=== PATIENT | female | born 1990 | race Caucasian/White ===

== ENCOUNTER 2016-08-30 10:32 | Emergency (ER) | payer BC ==
[~2016-08-30] VITALS: Ht 154.9 cm; Wt 50.0 kg
[~2016-08-30 10:32] MED LIST: ASPEC325 PO; CBCI IV; ETONMIS VAGRING; INSPMPNVLG PF
[2016-08-30 10:37] VITALS: Ht 154.9 cm; Wt 50.0 kg
[2016-08-30] MEDS ORDERED: IUD'IUD (10:53)
[2016-08-30] MEDS ORDERED: ATV/1 PO (10:53)
[2016-08-30] MEDS ORDERED: KETOROLAC TROMETHAMINE 30 MG/ML VIAL IV STA (11:14)
--- NOTE | 2016-08-30 11:28 | DIAGNOSTIC IMAGING REPORT ---
CHEST ONE VIEW PORTABLE CLINICAL HISTORY: Chest Pain dyspnea COMPARISON STUDY: No previous studies for comparison. FINDINGS: The bones soft tissues and hemidiaphragms are normal. The cardiomediastinal silhouette is normal. The lungs are clear. The pulmonary vasculature is normal. IMPRESSION: Negative chest. Electronically signed by: Pako Pittman M.D. 08/30/2016 11:26 AM Dictated Date/Time: 08/30/2016 11:26 AM
[2016-08-30 11:44] LABS: BASO % 0.5 %; BASO ABS # 0.04 K/uL (0-0.2); COMPLETE YES; EOS % 1.1 %; HEMATOCRIT 45.2 % (37-47); IG% 0.1 %; LYMPH % 22.4 %; MEAN CELL VOLUME 90.9 fL (80-100); MEAN CORPUSCULAR HGB CONC 34.1 g/dl (32-36); MEAN PLATELET VOLUME 10.1 fL (7.4-10.4); MONO % 5.1 %; NEUT % 70.8 %; PLATELET COUNT 245 K/uL (130-400); RED BLOOD COUNT 4.97 M/uL (4.2-5.4); WHITE BLOOD COUNT 8.04 K/uL (4.8-10.8)
[2016-08-30 12:03] LABS: BLOOD UREA NITROGEN 10 mg/dl (7-18); CREATININE 0.56 mg/dl (0.60-1.20); GLUCOSE 69 mg/dl (70-99)
[2016-08-30 12:04] LABS: BUN/CREATININE RATIO 18.2 (10-20); CARBON DIOXIDE 27 mmol/L (21-32); CHLORIDE 107 mmol/L (98-107); POTASSIUM 3.9 mmol/L (3.5-5.1); SODIUM 140 mmol/L (136-145)
[2016-08-30 12:06] LABS: CALCIUM 8.7 mg/dl (8.5-10.1)
[2016-08-30 12:08] LABS: CKMB/CK RATIO 1.5 (0-3.0)
[2016-08-30 14:30] VITALS: BP 108/78; TEMP 36.5; O2SAT 98
[2016-08-30 14:32] VITALS: PULSE 77
--- NOTE | 2016-08-30 17:06 | EMERGENCY ROOM VISIT NOTE ---
History Report prepared by Darron: Brandy Lopez Under the Supervision of: Dr. Carlos Rey D.O. First contact with patient: 10:51 Chief Complaint: CARDIAC ASSESSMENT Stated Complaint: CHEST PAIN Nursing Triage Summary: pt here with right sided chest pain, sob since 0830 this am. pt states increased with walking. History of Present Illness The patient is a 26 year old female who presents to the Emergency Room with complaints of an episode of right sided chest pain that began at 8:20 am this morning. She describes the pain as sharp in sensation. She notes the pain radiated into her right shoulder. She also experiencing shortness of breath and lightheadedness during the episode. The patient received Nitro en route to the ED and notes that this helped alleviate her pain. She notes that she does have anxiety and has experienced chest tightness before from her anxiety. She denies this feeling similar to her anxiety. The patient is a diabetic and has an insulin pump. She notes that she has not eaten yet today. She did check her sugars before EMS arrived and she reports a blood sugar level of 95. The patient notes swelling to her lower extremities last week. She has an IUD. Pt denies headache, change in vision, fevers, nausea, vomiting, diarrhea, pain with urination, pain to arm or jaw, recent trips and melena. Source of History: patient Onset: 8:20am this morning Position: chest (right) Quality: sharp Timing: other (episode) Associated Symptoms: + SOB, No abdominal pain, No fevers, No nausea, No vomiting Note: The patient experienced lightheadedness and shoulder pain. Review of Systems See HPI for pertinent positives & negatives. A total of 10 systems reviewed and were otherwise negative. Past Medical & Surgical Medical Problems: (1) Diabetes (2) Diabetic neuropathy (3) Fibromyalgia (4) Juvenile rheumatoid arthritis (5) Tibia/fibula fracture Social History Problems: (1) Bronchitis Family History Diabetes mellitus FH: CAD (coronary artery disease) GRANDMOTHER FH: multiple sclerosis MOTHER AUNT AUNT Social History Smoking Status: Current Every Day Smoker Alcohol Use: occasionally Marital Status: in relationship Occupation Status: employed Current/Historical Medications Scheduled Insulin Aspart (novoLOG INSULIN PUMP ), PF DAILY Scheduled PRN Lorazepam (Ativan), 1 MG PO Q6H PRN for Anxiety Miscellaneous Medications Iud's (Paragard Intrauterine Patient Care Director) Allergies Coded Allergies: Vancomycin (Verified Allergy, Mild, 0, 08/30/16) pruritus Cefaclor (Verified Allergy, Unknown, UNKNOWN, 08/30/16) Penicillins (Verified Allergy, Unknown, UNKNOWN, 08/30/16) Physical Exam Vital Signs Date Time Temp Pulse Resp B/P Pulse Ox O2 Delivery O2 Flow Rate FiO2 08/30/16 14:32 77 13 08/30/16 14:30 36.5 77 20 108/78 98 08/30/16 14:27 85 22 98 08/30/16 14:22 69 18 97 08/30/16 14:17 66 23 98 08/30/16 14:12 69 17 97 08/30/16 14:07 71 17 97 08/30/16 14:02 78 19 95 08/30/16 14:01 105/59 08/30/16 13:57 72 14 97 08/30/16 13:52 67 14 98 08/30/16 13:47 93 22 96 08/30/16 13:42 69 21 98 08/30/16 13:37 69 14 97 08/30/16 13:32 68 13 98 08/30/16 13:31 109/64 08/30/16 13:27 74 15 97 08/30/16 13:22 69 20 99 08/30/16 13:17 76 15 97 08/30/16 13:12 70 19 97 08/30/16 13:10 77 08/30/16 13:07 71 21 98 08/30/16 13:02 71 15 97 08/30/16 13:01 107/71 08/30/16 12:57 67 12 98 08/30/16 12:52 68 19 98 08/30/16 12:47 66 19 98 08/30/16 12:43 108/78 08/30/16 12:43 63 20 108/78 98 Room Air 08/30/16 12:42 78 26 99 08/30/16 12:37 70 20 98 08/30/16 12:32 79 19 98 08/30/16 12:27 81 25 99 08/30/16 12:22 76 23 98 08/30/16 12:17 87 19 99 08/30/16 12:12 69 14 98 08/30/16 12:07 70 21 98 08/30/16 12:02 75 33 98 08/30/16 11:57 71 0 98 08/30/16 11:52 72 23 98 08/30/16 11:47 75 20 98 08/30/16 11:42 73 5 99 08/30/16 11:37 73 22 97 08/30/16 11:32 80 12 99 08/30/16 11:27 78 19 96 08/30/16 11:22 72 18 98 08/30/16 11:17 71 23 98 08/30/16 11:12 70 14 97 08/30/16 11:07 83 22 98 08/30/16 11:02 71 19 99 08/30/16 10:57 70 13 96 08/30/16 10:52 86 20 99 08/30/16 10:47 74 12 99 08/30/16 10:44 78 08/30/16 10:41 126/61 08/30/16 10:37 36.5 72 16 126/61 99 Room Air Physical Exam GENERAL: alert, sitting up in bed, well appearing, well nourished, no distress, non-toxic EYE EXAM: normal conjunctiva OROPHARYNX: no exudate, no erythema, lips, buccal mucosa, and tongue normal and mucous membranes are moist NECK: supple, no nuchal rigidity, no adenopathy, non-tender LUNGS: Clear to auscultation. Normal chest wall mechanics HEART: no murmurs, S1 normal and S2 normal ABDOMEN: abdomen soft, non-tender, normo-active bowel sounds, no masses, no rebound or guarding. BACK: Back is symmetrical on inspection and there is no deformity, no midline tenderness, no CVA tenderness. SKIN: no rashes and no bruising, multiple tattoos. UPPER EXTREMITIES: upper extremities are grossly normal. Radial pulses equal bilaterally. LOWER EXTREMITIES: No pitting edema. Calves equal bilaterally. NEURO EXAM: Normal sensorium, cranial nerves II-XII grossly intact, normal speech, no gross weakness of arms, no gross weakness of legs. Medical Decision & Procedures ER Provider Diagnostic Interpretation: XRAY:[id number]: A Chest One view study was reviewed, no fracture was seen. CHEST ONE VIEW PORTABLE CLINICAL HISTORY: Chest Pain dyspnea COMPARISON STUDY: No previous studies for comparison. FINDINGS: The bones soft tissues and hemidiaphragms are normal. The cardiomediastinal silhouette is normal. The lungs are clear. The pulmonary vasculature is normal. IMPRESSION: Negative chest. Electronically signed by: Pako Pittman M.D. 08/30/2016 11:26 AM Dictated Date/Time: 08/30/2016 11:26 AM Laboratory Results 08/30/16 11:31 Red Blood Count 4.97, Mean Corpuscular Volume 90.9, Mean Corpuscular Hemoglobin 31.0, Mean Corpuscular Hemoglobin Concent 34.1, Mean Platelet Volume 10.1, Neutrophils (%) (Auto) 70.8, Lymphocytes (%) (Auto) 22.4, Monocytes (%) (Auto) 5.1, Eosinophils (%) (Auto) 1.1, Basophils (%) (Auto) 0.5, Neutrophils # (Auto) 5.69, Lymphocytes # (Auto) 1.80, Monocytes # (Auto) 0.41, Eosinophils # (Auto) 0.09, Basophils # (Auto) 0.04 08/30/16 11:31 Test 08/30/16 11:31 08/30/16 13:30 White Blood Count 8.04 K/uL (4.8-10.8) Red Blood Count 4.97 M/uL (4.2-5.4) Hemoglobin 15.4 g/dL (12.0-16.0) Hematocrit 45.2 % (37-47) Mean Corpuscular Volume 90.9 fL (80-100) Mean Corpuscular Hemoglobin 31.0 pg (25-34) Mean Corpuscular Hemoglobin Concent 34.1 g/dl (32-36) Platelet Count 245 K/uL (130-400) Mean Platelet Volume 10.1 fL (7.4-10.4) Neutrophils (%) (Auto) 70.8 % Lymphocytes (%) (Auto) 22.4 % Monocytes (%) (Auto) 5.1 % Eosinophils (%) (Auto) 1.1 % Basophils (%) (Auto) 0.5 % Neutrophils # (Auto) 5.69 K/uL (1.4-6.5) Lymphocytes # (Auto) 1.80 K/uL (1.2-3.4) Monocytes # (Auto) 0.41 K/uL (0.11-0.59) Eosinophils # (Auto) 0.09 K/uL (0-0.5) Basophils # (Auto) 0.04 K/uL (0-0.2) RDW Standard Deviation 43.6 fL (36.4-46.3) RDW Coefficient of Variation 13.1 % (11.5-14.5) Immature Granulocyte % (Auto) 0.1 % Immature Granulocyte # (Auto) 0.01 K/uL (0.00-0.02) D-Dimer < 190 ug/L FEU (0-500) Anion Gap 6.0 mmol/L (3-11) Est Creatinine Clear Calc Drug Dose 112.8 ml/min Estimated GFR () 147.1 Estimated GFR (Non- 126.9 BUN/Creatinine Ratio 18.2 (10-20) Calcium Level 8.7 mg/dl (8.5-10.1) Total Creatine Kinase 67 U/L (26-192) Creatine Kinase MB 1.0 ng/ml (0.5-3.6) Creatine Kinase MB Ratio 1.5 (0-3.0) Troponin I < 0.015 ng/ml (0-0.045) Laboratory results per my review. Medications Administered Medications (Trade) Dose Ordered Sig/Heike Route Start Time Stop Time Status Last Admin Dose Admin Ketorolac Tromethamine (Toradol Inj) 30 mg NOW STAT IV 08/30/16 11:14 08/30/16 11:15 DC 08/30/16 12:42 30 MG ECG Indication: chest pain Rate (beats per minute): 68 Rhythm: normal sinus Findings: no ectopy, other (normal axis) Comparison ECG Date: no prior available ED Course ED COURSE: Vital signs were reviewed and showed normal vitals. The patients medical record was reviewed The above diagnostic studies were performed and reviewed. ED treatments and interventions as stated above. 1059: The patient was evaluated in room C7. A complete history and physical examination was performed. 1114: Toradol Inj 30 mg IV. 1306: The patient's pain has resolved. I updated her on her results. 1428: Upon reevaluation, the patient is hemodynamically stable.I discussed my findings with the patient and she understands and agrees with the treatment plan. Based on the patients age, coexisting illnesses, exam and lab findings the decision to treat as an outpatient was made. The patient remained stable while under my care. The patient appeared well at the time of discharge. Medical Decision Differential diagnoses includes but is not limited to acute coronary syndrome, myocardial infarction, pericarditis, pulmonary embolus, aortic dissection, pneumonia, pneumothorax, musculoskeletal, shingles, esophageal. The patient is a 26 year old female who presents to the ED with complaints of chest pain. Labs so no significant leukocytosis or anemia. BMP is unremarkable. Troponins were negative 2. D-dimer was negative. EKG was unremarkable. Chest x-ray was normal. Her pain completely abated while in the ER. Based on her symptoms I do believe that this is likely either muscle skeletal or anxiety related. She does have risk factors which include diabetes and is a smoker but with her 2 negative troponins and negative d-dimer she was felt to be extremely low risk. Heart score was low. Patient was updated at bedside and discharged at her baseline to follow-up with her primary care doctor. Discussed with Pt concerning signs and symptoms to watch out for. Pt was instructed to follow up with their PCP and discussed with the patient their option to return to the ED at anytime for persistent or worsening symptoms. The appropriate anticipatory guidance and out-patient management, including indications for return to the emergency department, were explained at length to the patient and understood. Impression Primary Impression: Chest pain Scribe Attestation The scribe's documentation has been prepared under my direction and personally reviewed by me in its entirety. I confirm that the note above accurately reflects all work, treatment, procedures, and medical decision making performed by me. Departure Information Dispostion Home / Self-Care Referrals Dorothy Velásquez DO (PCP) Forms IMPORTANT VISIT INFORMATION Patient Instructions Chest Pain - [facility], [facility] Additional Instructions Please follow up with your primary care doctor with in the next 24 hours. Any worsening of your symptoms, please return to the ED immediately. Includes recurrence or worsening chest pain, shortness breath, passing out, weakness or numbness in arms or legs or any other concerning signs or symptoms from your standpoint. Problem Qualifiers Primary Impression: Chest pain Chest pain type: unspecified Qualified Codes: R07.9 - Chest pain, unspecified
== END 2016-08-30 15:15 | disposition home or self-care (01) ==
LOC: EDBD 10:32 → C.EDC 10:33
DX: R07.9 Chest pain, unspecified (principal); M25.511 Pain in right shoulder; F41.9 Anxiety disorder, unspecified; R06.02 Shortness of breath; R42 Dizziness and giddiness; M79.7 Fibromyalgia; E11.9 Type 2 diabetes mellitus without complications; Z96.41 Presence of insulin pump (external) (internal); Z97.5 Presence of (intrauterine) contraceptive device; Z82.0 Family history of epilepsy and other diseases of the nervous system; Z82.49 Family history of ischemic heart disease and other diseases of the circulatory system; Z83.3 Family history of diabetes mellitus; F17.200 Nicotine dependence, unspecified, uncomplicated

== ENCOUNTER 2017-01-19 04:40 | Emergency (ER) | payer BC ==
[~2017-01-19] VITALS: Ht 154.9 cm; Wt 48.6 kg
[~2017-01-19 04:40] MED LIST changes: -ASPEC325 PO; +ATV/1 PO; -CBCI IV; -ETONMIS VAGRING; +IUD'IUD
[2017-01-19 04:45] VITALS: BP 122/81; PULSE 87; TEMP 37; O2SAT 97; Ht 154.9 cm; Wt 48.6 kg
[2017-01-19] MEDS ORDERED: OXYCODONE IR HOME PACK PO ONE (05:00)
[2017-01-19] MEDS ORDERED: CLINDAMYCIN 150MG HOME PACK PO ONE (05:00)
[2017-01-19] MEDS ORDERED: CLIN150C PO (05:05)
--- NOTE | 2017-01-19 05:12 | EMERGENCY ROOM VISIT NOTE ---
History First contact with patient: 04:49 Chief Complaint: DENTAL PAIN Stated Complaint: POSS TOOTH ABCESS-PAIN,DIABETIC,ELEVATED BG Nursing Triage Summary: pt thinks she has a tooth abcess right bottom, c/o pain History of Present Illness The patient is a 26 year old female who presents to the Emergency Room with complaints of dental pain for the past few days and noticed that she needs to have the tooth fixed. Patient has an appointment on Friday with her dentist. Patient states she tried Motrin and Tylenol with no relief of symptoms. Pain currently 7 out of 10. Nothing makes it better or worse. Patient states her blood sugars have been slightly elevated. Patient states she understands how to do a sliding scale and cover with extra insulin. Patient denies chest pain, dyspnea, fevers, facial swelling, sore throat, cold symptoms. She is tolerated by mouth fluids and food. Review of Systems See HPI for pertinent positives & negatives. A total of 6 systems reviewed and were otherwise negative. Past Medical/Surgical History Medical Problems: (1) Diabetes (2) Diabetic neuropathy (3) Fibromyalgia (4) Juvenile rheumatoid arthritis (5) Tibia/fibula fracture Social History Problems: (1) Bronchitis Family History Diabetes mellitus FH: CAD (coronary artery disease) GRANDMOTHER FH: multiple sclerosis MOTHER AUNT AUNT Social History Smoking Status: Current Every Day Smoker Alcohol Use: occasionally Marital Status: in relationship Occupation Status: employed Current/Historical Medications Scheduled Clindamycin Hcl (Cleocin), 150 MG PO QID Insulin Aspart (novoLOG INSULIN PUMP ), PF DAILY Scheduled PRN Lorazepam (Ativan), 1 MG PO Q6H PRN for Anxiety Miscellaneous Medications Iud's (Paragard Intrauterine Ecosystem Ecology Professor) Physical Exam Vital Signs Date Time Temp Pulse Resp B/P (MAP) Pulse Ox O2 Delivery O2 Flow Rate FiO2 01/19/17 04:45 37.0 87 18 122/81 97 Room Air Physical Exam VITALS: Vitals are noted on the nurse's note and reviewed by myself. Vital signs stable. GENERAL: Pleasant female, in no acute distress, nondiaphoretic, well-developed well-nourished. SKIN: The skin was without rashes, erythema, edema, or bruising. There is no tenting of the skin. Capillary reflex less than 2 seconds. HEAD: Normocephalic atraumatic. EARS: External auditory canals clear, tympanic membranes pearly tompkins without erythema or effusion bilaterally. EYES: Pupils equal round and reactive to light and accommodation. Conjunctivae without injection, sclerae without icterus. Extraocular movements intact. NOSE: Patent, turbinates without inflammation or discharge. No sinus tenderness. MOUTH: Mucous membranes moist. Pharynx without erythema or exudate. Uvula midline. Airway patent. Tongue does not deviate. Right lower second molar with extensive dental decay and, slightly erythematous with no palpable abscess. No Rambo's angina. Overall dental hygiene fair NECK: Supple without nuchal rigidity. No lymphadenopathy. No thyromegaly. Cervical spine is nontender. No JVD. HEART: Regular rate and rhythm without murmurs gallops or rubs. LUNGS: Clear to auscultation bilaterally without wheezes, rales or rhonchi. No dullness to percussion. No retractions or accessory muscle use. ABDOMEN: Positive bowel sounds x 4. Normal tympanic percussion. Soft, nontender, without masses or organomegaly. Veras sign negative. No guarding or rebound tenderness. MUSCULOSKELETAL: No muscle atrophy, erythema, or edema noted. NEURO: Patient was alert and oriented to person place and time. Normal sensation to light and sharp touch. No focal neurological deficits. Medical Decision & Procedures ED Course Prior records reviewed and summarized as above. Triage Nursing notes reviewed. Additional history obtained from boyfriend. The patient's history was concerning for dental pain. Differential diagnosis: Etiologies such as cellulitis, abscess, Rambo angina, gingivitis, cavity, as well as others were entertained.. Physical examination: The physical examination was consistent with dental pain from dental caries ER treatment provided: Clindamycin, OxyIR On reassessment the patient felt better. Diagnostics interpreted by me: Deferred This appears to be isolated dental pain from dental cavities. Patient was counseled on proper dental hygiene. She is advised to keep her appointment as scheduled with dentistry for definitive care for her ongoing dental problems. She is advised to monitor her blood sugars. She is advised to return to the ER immediately for facial swelling, fevers, high blood sugars, worsening signs or symptoms or as needed. Patient no signs of airway compromise. She is well- appearing. No signs of Rambo angina. By the evaluation outlined above emergent etiologies such as abscess, Rambo angina as well as others were deemed relatively unlikely. The pt informed about the findings as listed above. All questions were answered and pleased with the treatment. Return instructions were outlined and the patient was discharged in stable condition. Outpatient prescription management: Clindamycin Referral: The patient was referred back to dentistry for follow-up in 2 to 3 days for a recheck of the current condition. Medical Decision As above Medication Reconcilliation Current Medication List: was personally reviewed by me Blood Pressure Screening Patient's blood pressure: Normal blood pressure Impression Primary Impression: Pain, dental Additional Impression: Dental caries Departure Information Dispostion Home / Self-Care Condition GOOD Prescriptions Clindamycin Hcl (CLEOCIN) 150 Mg Cap 150 MG PO QID for 10 Days, #40 CAP Prov: Isaura Stout .JEZ 01/19/17 Forms HOME CARE DOCUMENTATION FORM, IMPORTANT VISIT INFORMATION Patient Instructions [facility] Additional Instructions Monitor your blood sugars. Clindamycin 150mg: Take one pill 4 times daily for 10 days for your infection. Take with food, but avoid dairy. Avoid prolonged sun exposure since this medication makes you temporarily more susceptible to sunburns. All antibiotics can cause diarrhea. If this occurs and you feel worse or it does not resolve in 1-2 days follow up with your doctor or return to the Emergency Department as this could be signs of serious underlying problems. Any medication can cause an allergic reaction, stop the pills immediately and return to the ER for rash, hives, breathing difficulties, or swelling. Oxycodone (OxyIR) 5mg: Take 1-2 pills every four hours for breakthrough pain. Avoid alcohol, operating machinery or dangerous equipment, working on ladders or roofs, DRIVING, or situations where being under the influence may be dangerous. It is recommended to use an [id number] stool softener such as Colace, 100mg twice daily while taking this medication to avoid constipation. Ibuprofen(Motrin, Advil) may be used for fever or pain. Use 600mg every six hours as needed. Take with food. Avoid using more than 2400mg in a 24 hour period. Do not use 2400mg per day for more than three consecutive days without physician direction. Prolonged inappropriate use can lead to stomach upset or ulcers. This medication can be taken if you need to drive, work, or perform activities which may be dangerous when taking narcotic pain medication. (AND/OR) Acetaminophen(Tylenol) may be used for fever or pain. Use 1000mg every six hours as needed. Avoid using more than 3000mg in a 24 hour period. This medication can be taken if you need to drive, work, or perform activities which may be dangerous when taking narcotic pain medication. Mounds teeth twice a day, floss daily and do warm saltwater gargles 3 times a day. See a dentist as soon as possible for definitive care for your dental problem. Return to ER sooner for facial swelling, fever, redness, worsening signs or symptoms or as needed. Problem Qualifiers
== END 2017-01-19 05:21 | disposition home or self-care (01) ==
LOC: C.EDB 04:41 → C.EDA 05:21
DX: K08.89 Other specified disorders of teeth and supporting structures (principal); K02.9 Dental caries, unspecified; E11.40 Type 2 diabetes mellitus with diabetic neuropathy, unspecified; M79.7 Fibromyalgia; F17.200 Nicotine dependence, unspecified, uncomplicated; Z79.4 Long term (current) use of insulin; Z83.3 Family history of diabetes mellitus; Z82.49 Family history of ischemic heart disease and other diseases of the circulatory system; Z82.0 Family history of epilepsy and other diseases of the nervous system